=== PATIENT | female | born 1945 | race Caucasian/White ===

== ENCOUNTER 2024-11-06 06:26 | Day surgery (SDC) | payer MEDICARE, OTHER, SELFPAY ==
[2024-11-06] VITALS (8 sets, daily range): BP systolic 123–145; BP diastolic 62–73; BMI 34.6
[2024-11-06] MEDS: Pyridium 200 MG PO (09:55)
[2024-11-06] MEDS: HEPARIN 5000 UNITS SC (09:55)
[2024-11-06] MEDS: NORMOSOL-R/PLASMALYTE-A 1000 IV (10:23)
[2024-11-06] MEDS: ZOFRAN 4 MG IV (13:30)
== END 2024-11-06 16:05 | disposition home or self-care (01) ==
LOC: SDS 06:26
PROVIDERS: ATTENDING PHYSICIAN Obstetrics & Gynecology; FAMILY PHYSICIAN Physician Assistant
DX: N99.3 Prolapse of vaginal vault after hysterectomy (principal); N95.8 Other specified menopausal and perimenopausal disorders; N39.3 Stress incontinence (female) (male); Y83.8 Other surgical procedures as the cause of abnormal reaction of the patient, or of later complication, without mention of misadventure at the time of the procedure; N36.41 Hypermobility of urethra
CPT/HCPCS: 57282; 57250; 57288; 86900; 86901; C1713; C1771; J1580